=== PATIENT | female | born 1955 | race Two or more races ===

== ENCOUNTER 2023-09-27 10:27 | Emergency (ER) | payer OTHER ==
[~2023-09-27] VITALS: Ht 165.1 cm; Wt 77.1 kg
[2023-09-27] MEDS ORDERED: METHYLPREDNISOLO8 MG PO (10:50)
[2023-09-27] MEDS ORDERED: CRESTOR10 MG PO (10:51)
[2023-09-27] MEDS ORDERED: COZAAR50 MG PO (10:51)
[2023-09-27] MEDS ORDERED: LYRICA100 MG PO (10:51)
[2023-09-27] MEDS ORDERED: LASIX20 MG PO (10:51)
[2023-09-27] MEDS ORDERED: MEPERIDINE HCL/PF 25 MG/ML VIAL IV ONE (11:15)
[2023-09-27 12:02] LABS: URINE APPEARANCE Cloudy; URINE BILIRRUBIN Negative (NEGATIVE); URINE BLOOD Negative; URINE COLOR Yellow; URINE GLUCOSE Negative (NEGATIVE); URINE LEUKOCYTE Negative; URINE NITRATE Negative; URINE PROTEIN 30 (NEGATIVE); URINE UROBILINOGEN 0.2 E.U./dl
[2023-09-27 12:07] LABS: URINE BACTERIA 1145.3 uL (0.0-1933); URINE EPITHELIAL CELLS 117.5 uL (0.0-38.8); URINE WBC 27.2 uL (0.0-23.2)
[2023-09-27 12:08] LABS: HEMATOCRIT 29.9 % (36.0-45.00); MEAN CORPUSCULAR HEMOGLOBIN 28.4 pg (27.00-32.0); MEAN CORPUSCULAR HGB CONC 33.4 g/dl (32.0-36.0); PLATELET COUNT 242 K/uL (150-450); RED BLOOD COUNT 3.52 M/uL (4.00-6.00); RED CELL DISTRIBUTION WIDTH 16.8 % (11.5-14.5)
[2023-09-27 12:31] LABS: URINE CRYSTALS MODERATE /HPF
== END 2023-09-27 13:44 | disposition home or self-care (01) ==
LOC: ER 10:28
PROVIDERS: Emergency Medicine
DX: R60.0 Localized edema (principal); I10 Essential (primary) hypertension; Z88.6 Allergy status to analgesic agent
CPT/HCPCS: 36415; 93926; 96365; 99284; J3490